=== PATIENT | female | born 1985 | race Caucasian/White ===

== ENCOUNTER 2019-11-13 09:46 | Emergency (ER) | payer OTHER, SELFPAY ==
--- NOTE | ~2019-11-13 | XR_ITS ---
EXAMINATION: XR finger 4th LT min 2V DATE: 11/13/2019 10:17 INDICATION: Left hand fourth digit injury. TECHNIQUE: 4 views of left hand fourth digit were obtained. COMPARISON: None. FINDINGS: There is an extra-articular oblique fracture involving head and diaphysis of fourth middle phalanx. The distal fracture fragment demonstrates 1 mm radial displacement and 1 mm shortening. Join t spaces are normal. IMPRESSION: 1. Extra-articular oblique fracture of fourth middle phalanx. Reviewed, dictated and finalized at location A.
[2019-11-13 09:55] VITALS: BP 113/70; PULSE 78; RESP 18; TEMP 37; O2SAT 99
--- NOTE | 2019-11-13 10:01 | ED.UPPEXIN ---
HPI - Extremity Injury (Upper) General Chief Complaint: Extremity Injury, Upper Stated Complaint: left pinky finger Time Seen by Provider: 11/13/19 10:06 Source: patient and RN notes reviewed Mode of arrival: ambulatory Limitations: no limitations History of Present Illness HPI narrative: 34 year old female who presents to [facility] care with complaints of injury to left ring finger last night around 1929. Patient states that she was cleaning the elliptical machine at home and smashed her left 4th finger. Patient presents with swelling and bruising to the left 4th finger with pain located in middle region of phalanx described as sharp and throbbing. Patient states that she has taken Ibuprofen and applied ice to her finger. Patient has decreased mobility to left index finger, pain, swelling, bruising,finger is pink and warm to touch, strong left radial pulse, states some tingling to tip of her left ring finger, complaint: injury to: left and finger (4th finger) Onset (ago): hour(s) (1929 yesterday) Other Extremity Injury: Left: fingers (ring finger) Other injuries: none Handedness: right Place: home Severity: mild Severity scale (1-10): 4 Relieving factors: none Exacerbating factors: movement of extremity Context: crush Associated symptoms: other (tingling to tip of finger) Treatments prior to arrival: cold therapy and NSAIDS Related Data Home Medications Medication Instructions Recorded Confirmed albuterol sulfate 2 puff INHALATION QID PRN 11/13/19 11/13/19 albuterol sulfate 2.5 mg INHALATION Q4H PRN 11/13/19 11/13/19 alprazolam 0.5 mg PO TID PRN 11/13/19 11/13/19 bupropion HCl 150 mg PO QAM 11/13/19 11/13/19 hydrocodone-acetaminophen 1 tablet PO Q6H PRN 11/13/19 11/13/19 omeprazole 40 mg PO DAILY 11/13/19 11/13/19 topiramate 25 mg PO DAILY 11/13/19 11/13/19 Allergies Allergy/AdvReac Type Severity Reaction Status Date / Time No Known Allergies Allergy Verified 11/13/19 09:51 Review of Systems Review of Systems: Narrative: CONSTITUTIONAL: Denies fever, chills, or sweats. EYES: Denies visual changes, redness, or discharge. ENT: Denies rhinorrhea, congestion, sore throat, states some ear pressure recently completed CARDIOVASCULAR: Denies chest pain, palpitations, or edema. RESPIRATORY: Denies cough or dyspnea. GASTROINTESTINAL: Denies abdominal pain, nausea, vomiting, or diarrhea. GENITOURINARY: Denies dysuria or hematuria. SKIN: Denies rash or itching. MUSCULOSKELETAL: Denies back pain,positive left ring finger pain with swelling and bruising present, or myalgia. NEUROLOGIC: Denies headache, numbness, or weakness. PSYCHIATRIC: History anxiety or depression. All systems reviewed & are unremarkable except as noted in HPI and below PMFSH Past Medical History Medical History (Updated 11/13/19 @ 11:09 by Isaura Petit NP) Anxiety and depression Diaphragm injury GERD (gastroesophageal reflux disease) Migraines Surgical History Surgical History (Updated 11/13/19 @ 10:32 by Isaura Petit NP) History of splenectomy History of thoracotomy History of tonsillectomy Family History Family History Father Hypertension Social History Social History (Updated 11/13/19 @ 10:47 by Isaura Petit NP) Smoking status: Former smoker Alcohol intake: never Living arrangements: with family Gender identity (if verbalized by the patient): Female Comments At time of signature, agree with nursing past medical, surgical, social family history. There is no relevant family history pertinent to the presenting complaint Exam Narrative: Exam Narrative: GENERAL: Well-appearing, well-nourished, and in no acute distress. HEAD: Normocephalic, atraumatic. EYES: PERRLA and EOMI. ENT: Nares clear, no rhinorrhea or epistaxis. Mucous membranes moist. TMs normal with dull light reflex, throat pink with no swelling, lesions or exudate. NECK: Supple.no lymphadenopathy
== END 2019-11-13 10:49 | disposition home or self-care (01) ==
PROVIDERS: Emergency Provider Registered Nurse; PCP Family Medicine
DX: S62.625A Displaced fracture of middle phalanx of left ring finger, initial encounter for closed fracture (principal); W31.89XA Contact with other specified machinery, initial encounter; F41.9 Anxiety disorder, unspecified; F32.9 Major depressive disorder, single episode, unspecified; K21.9 Gastro-esophageal reflux disease without esophagitis; Z87.891 Personal history of nicotine dependence
CPT/HCPCS: 29130; 73140; 99204; G0463

== ENCOUNTER 2019-11-18 00:35 | Day surgery (SDC) | payer OTHER, SELFPAY ==
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
[2019-11-17 09:33] VITALS: BMI 29.2
[2019-11-18] VITALS (8 sets, daily range): BP systolic 132–165; BP diastolic 61–76; PULSE 66–92; RESP 12–19; TEMP 36.4; O2SAT 98–100
--- NOTE | ~2019-11-18 | XR_ITS ---
EXAMINATION: XR surgery orthopedic DATE: 11/18/2019 10:04 INDICATION: Fracture of left hand fourth middle phalanx. TECHNIQUE: 7 intraoperative fluoroscopic views of left hand were obtained. I wasn't present. Fluorosc opy exposure time was 1 minute 44 seconds. COMPARISON: Left hand fourth digit radiographs 11/13/2019 FINDINGS: There is an extra articular oblique fracture of fourth middle phalanx status post open redu ction internal fixation with 2 screws and a broken drill bit. The distal fracture fragment demonstrat es 1 mm radial displacement and 1 mm shortening. IMPRESSION: 1. Oblique fracture of fourth middle phalanx with improvement in alignment status post open reduction internal fixation. Reviewed, dictated and finalized at location A. IMPRESSION: 1. Oblique fracture of fourth middle phalanx with improvement in alignment stat us post open reduction internal fixation.
[2019-11-18] MEDS: LACTATED RINGERS 1,000 ML 30 ML IV CONT ×2 (06:30→10:07)
[2019-11-18 07:05] LABS: Blood Urea Nitrogen 11 mg/dL (7-17); Carbon Dioxide 22 mmol/L (22-30); Chloride 110 mmol/L (98-107); Estimated CRCL calculation 83 ml/min; Estimated Glomerular Filt Rate > 60; Glucose 95 mg/dL (65-105); Potassium 4.2 mmol/L (3.4-5.0); Sodium 140 mmol/L (137-145)
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
--- NOTE | 2019-11-18 07:29 | WPDHPUPDATE1 ---
History and Physical Update Update Date/Time: 11/18/19 07:29 History and Physical has been reviewed, including an updated exam of the patient. There are NO changes in the patient's condition. Risks, benefits, and alternatives have been discussed and questions answered. Patient agrees to proceed with procedure.
[2019-11-18] MEDS: ceFAZolin 2 GM/D5W 50 ML 2 GM/50 ML BAG IVPB (07:33)
[2019-11-18] MEDS: LIDO 1%/EPINEPHRINE 1:100,000 20 ML VIAL 10 ML INFILTRATE (08:12)
[2019-11-18] MEDS: BACITRACIN OINTMENT 15 GM TUBE 1 APPLIC TOPICAL (08:12)
--- NOTE | 2019-11-18 10:06 | P.OPB_ITS ---
Procedure Note - Brief Procedure Note - Brief Date of procedure: 11/18/19 Pre-op diagnosis: displaced fx of left ring finger middle phalanx Post-op diagnosis: same Procedure performed: ORIF left ring finger middle phalanx. Implants: 1.3 mm screws 9 & 11 mm Broken 1.1 mm bit. Anesthesia: GETA Surgeon: Oneal Lee MD Asset Protection Detective: Marce Estimated blood loss (mL): 2 Tourniquet time (min): 107 Drains: No Packing: No Pathology: none sent Complications: Other complications (1.1 mm bit broke off within the bone. Was left in place.) Condition: stable Disposition: PACU
--- NOTE | 2019-11-18 13:07 | PM.PROC ---
Procedure Note - Detailed Date of procedure: 11/18/19 Pre-op diagnosis: displaced fx of left ring finger middle phalanx Post-op diagnosis: same Procedure performed: ORIF of displaced fracture of the shaft of the middle phalanx of the left ring finger. Description of procedure: The left ring finger was marked with ink in the holding sifuentes. The patient was taken into the operating room on the [facility] and placed supine on the operating table. A time-out was held and confirmed. She was given IV sedation at the onset. This was converted to an LMA general anesthesia during the middle portion of the surgery. The extremity was prepped and draped in the usual fashion. Images were made to identify the fracture. The digit was infiltrated with 1% lidocaine with epinephrine, 6 milliters. At the end of the case 6 milliliter of Marcaine 0.5% without epinephrine were added as a local block. A dorsal midline incision was made through the skin from the distal interphalangeal joint to the proximal interphalangeal joint. Skin flaps were elevated away from the extensor tendon. Couple of small veins were cauterized. The fracture was accessed through an ulnar paratendinous incision elevating the tendon to the radial side. A small free-floating fragment was identified at the distal end of the proximal fracture fragment. This was not separately repaired. Reduction and fixation were achieved after several attempts were made. Two screws from the Modular Hand set measuring 1.3 x 9 and 1.3 x 11 mm provided our final fixation. An intraosseous segment of 1.1 mm drill bit was left as well. Several images with the C arm intensifier were made to confirm placement of screws. The wound was irrigated and closed with running 5-0 Ethilon suture. A soft hand bandage, including dede wrapping of the middle and ring fingers, was applied without splint. Ancef 2 grams were given IV prior to the procedure. Total tournequet time was 107 minutes. The patient is on chronic hydrocodone and has requested a few Tramadol pills, which she has used previously while on her current regimen of MAOI medications. She is not sure if she will have received her new supply of hydrocodone. Implants: Two 1.3 mm screws (9mm and 11mm)from the Modular Hand Set. Broken intraosseous segment of 1.1 mm drill bit. Anesthesia: GLMA Surgeon: Oneal Lee MD Estimated blood loss (mL): 2 Drains: No Complications: Other complications Condition: stable Disposition: PACU
== END 2019-11-18 12:07 | disposition home or self-care (01) ==
PROVIDERS: Anesthesiology; PCP Family Medicine; Visit Provider Plastic Surgery
PROC: (CPT 26735; principal; 2019-11-18 07:30)
DX: S62.625A Displaced fracture of middle phalanx of left ring finger, initial encounter for closed fracture (principal); K21.9 Gastro-esophageal reflux disease without esophagitis; F41.8 Other specified anxiety disorders; Z87.891 Personal history of nicotine dependence; Z90.81 Acquired absence of spleen; W22.09XA Striking against other stationary object, initial encounter
CPT/HCPCS: 26735; 36415; 80048; A9270; C1713; J0690; J1100; J1885; J2250; J2405; J2704; J3010; J7120

== ENCOUNTER 2020-01-25 09:38 | Emergency (ER) | payer OTHER, SELFPAY ==
[2020-01-25 09:44] VITALS: BP 116/74; PULSE 79; RESP 14; TEMP 37.1; O2SAT 100
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
== END 2020-01-25 10:00 | disposition home or self-care (01) ==
PROVIDERS: Emergency Provider Nurse Practitioner; PCP Family Medicine
DX: H92.01 Otalgia, right ear (principal); R68.84 Jaw pain; F41.8 Other specified anxiety disorders; K21.9 Gastro-esophageal reflux disease without esophagitis; Z90.81 Acquired absence of spleen; Z87.891 Personal history of nicotine dependence
CPT/HCPCS: 99211; G0463

== ENCOUNTER 2021-04-05 08:19 | Emergency (ER) | payer OTHER, SELFPAY ==
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
[2021-04-05 08:28] VITALS: BP 113/71; PULSE 78; RESP 14; TEMP 36.4; O2SAT 99
== END 2021-04-05 09:06 | disposition home or self-care (01) ==
PROVIDERS: Emergency Provider Nurse Practitioner Family; PCP Family Medicine
DX: J02.9 Acute pharyngitis, unspecified (principal); R59.0 Localized enlarged lymph nodes; F32.9 Major depressive disorder, single episode, unspecified; F41.9 Anxiety disorder, unspecified; Z79.891 Long term (current) use of opiate analgesic; Z87.891 Personal history of nicotine dependence
CPT/HCPCS: 87081; 87880; 99213; G0463

== ENCOUNTER 2021-10-01 08:04 | Emergency (ER) | payer OTHER, SELFPAY ==
--- NOTE | ~2021-10-01 | XR_ITS ---
EXAMINATION: XR chest 2V DATE: 10/01/2021 08:48 INDICATION: Chest pain during inspiration. TECHNIQUE: Frontal and lateral views of the chest were obtained. COMPARISON: None. FINDINGS: There are airspace opacities at left lung base. There is a small left pleural effusion. No pneumothorax. The heart size is normal. There is a thoracotomy defect in left seventh rib. IMPRESSION: 1. Airspace opacities at left lung base, consistent with atelectasis/scarring versus pneumonia. 2. Small left pleural effusion. Reviewed, dictated and finalized at location A. [facility] IMPRESSION: 1. Airspace opacities at left lung base, consistent with atelectasis/scarring v ersus pneumonia. 2. Small left pleural effusion.
[2021-10-01 08:16] VITALS: BP 113/60; PULSE 68; RESP 18; TEMP 37.1; O2SAT 100
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
== END 2021-10-01 09:17 | disposition home or self-care (01) ==
PROVIDERS: Emergency Provider Registered Nurse; PCP Family Medicine
DX: J90 Pleural effusion, not elsewhere classified (principal); R07.2 Precordial pain; K21.9 Gastro-esophageal reflux disease without esophagitis; F41.9 Anxiety disorder, unspecified; F32.A Depression, unspecified
CPT/HCPCS: 71046; 99213; G0463

== ENCOUNTER 2022-05-31 09:15 | Emergency (ER) | payer OTHER, SELFPAY ==
[2022-05-31 09:25] VITALS: BP 95/66; PULSE 84; RESP 16; TEMP 37.1; O2SAT 100
--- NOTE | 2022-05-31 10:51 | ED.EAR ---
HPI - Ear Problem General Chief complaint: Ear Stated complaint: Ear Pain Time Seen by Provider: 05/31/22 10:25 Source: patient, RN notes reviewed and old records reviewed Mode of arrival: ambulatory Limitations: no limitations History of Present Illness HPI Narrative: 37 year old male who presents to [facility] care with complaints of ear pain to her right ear with nasal congestion and headache pain to the right side of her face for the past 3 days. Patient reports that she has taken some left over Amoxicillin for the past 3 days. Patient reports that she has felt dizzy at times also.Rates her right ear pain at 2.10 states sharp at times. MD Complaint: ear pain and other (sinus pressure) Location: right ear Duration: constant Discharge from ear: Reports no Treatment prior to arrival: other (3 days of amoxicillin 3X day) Related Data Home Medications Medication Instructions Recorded Confirmed albuterol sulfate 2.5 mg/3 mL 2.5 mg inhalation Q4H PRN sob 11/13/19 05/31/22 (0.083 %) solution for nebulization albuterol sulfate 90 mcg/actuation 2 puff inhalation QID PRN sob 11/13/19 05/31/22 aerosol inhaler alprazolam 0.5 mg tablet 0.5 mg PO TID PRN anxiety 11/13/19 05/31/22 omeprazole 40 mg capsule,delayed 40 mg PO DAILY 11/13/19 05/31/22 release spironolactone 100 mg tablet 100 mg PO DAILY 11/17/19 05/31/22 linaclotide 145 mcg capsule 145 mcg PO DAILY 04/05/21 05/31/22 (Linzess) bupropion HCl 300 mg 24 hr tablet, 300 mg PO QAM 10/01/21 05/31/22 extended release levonorgestrel 20 mcg/24 hours (8 1 device intrauterine ONCE 10/01/21 05/31/22 yrs) 52 mg intrauterine device (Mirena) Allergies Allergy/AdvReac Type Severity Reaction Status Date / Time No Known Allergies Allergy Verified 05/31/22 09:45 Review of Systems Review of Systems: CONSTITUTIONAL: Denies malaise, chills, sweats, or fever. EYES: Denies visual changes, redness, or discharge. ENT: Reports rhinorrhea, congestion,right sided sinus pain and pressure, right otalgia no sore throat. CARDIOVASCULAR: Denies chest pain, palpitations, or edema. RESPIRATORY: No cough.? Denies dyspnea. GASTROINTESTINAL: Denies abdominal pain, nausea, vomiting, diarrhea SKIN: Denies rash or itching. MUSCULOSKELETAL: Denies myalgia. NEUROLOGIC: Reports frontal headache. All systems reviewed & are unremarkable except as noted in HPI and below PMFSH Past Medical History Medical History Anxiety and depression Diaphragm injury GERD (gastroesophageal reflux disease) Migraines Surgical History Surgical History History of cholecystectomy History of splenectomy History of thoracotomy History of tonsillectomy Family History Family History Father Hypertension COPD (chronic obstructive pulmonary disease) Grandparent Diabetes mellitus Heart disease Cerebrovascular accident Social History Social History Smoking packs per day: 0.25 Smoking cigarettes per day: 5.0 Years smoked: 10 Smoking pack-years: 2.50 Smoking status: Former smoker Tobacco type: cigarettes Alcohol intake: current Alcohol use details: social Substance use: never Gender identity (if verbalized by the patient): Female Comments At time of signature, agree with nursing past medical, surgical, social and family history. There is no relevant family history pertinent to the presenting complaint Exam Narrative: GENERAL: Well-appearing, well-nourished, and in no acute distress. HEAD: Normocephalic EYES: PERRLA, conjunctivae clear ENT: Nares clear, turbinates edematous and erythematous, clear discharge. Mucous membranes moist. TM pearly gillis with dull light reflex bilaterally; no tragal tenderness. Oropharynx erythematous without lesions. To
== END 2022-05-31 11:10 | disposition home or self-care (01) ==
PROVIDERS: Emergency Provider Registered Nurse; PCP Family Medicine
DX: J32.9 Chronic sinusitis, unspecified (principal); H92.01 Otalgia, right ear; Z87.891 Personal history of nicotine dependence; K21.9 Gastro-esophageal reflux disease without esophagitis; F41.9 Anxiety disorder, unspecified; F32.A Depression, unspecified
CPT/HCPCS: 99213; G0463